=== PATIENT | female | born 1960 | race Caucasian/White ===

== ENCOUNTER 2016-06-25 12:47 | Emergency (ER) | payer BC, SELFPAY ==
[2016-06-25 12:32] LABS: WBC (NOT ORDERED) (RFLEX) 0 (0-5)
[2016-06-25 12:35] LABS: BASOPHILS 0.4 %; BASOPHILS ABSOLUTE 0.05 10/3/uL (0.0-0.16); EOSINOPHILS 0.7 %; EOSINOPHILS ABSOLUTE 0.09 10/3/uL (0.0-0.53); HEMATOCRIT 46.7 % (36.0-48.0); HEMOGLOBIN 15.7 g/dL (12.0-16.0); IMMATURE GRANULOCYTES 0.2 %; IMMATURE GRANULOCYTES ABSOLUTE 0.03 10/3/uL (0.0-0.11); LYMPHOCYTES 25.9 %; MANUAL DIFF NO %; MEAN CORPUS HGB CONC 33.6 g/dL (32.0-36.0); MEAN CORPUSCULAR HEMOGLOB 30.5 pg (26.0-34.0); MEAN CORPUSCULAR VOLUME 90.9 fL (80-100); MEAN PLATELET VOLUME 11.1 fL (9.2-13.0); MONOCYTES 4.9 %; MONOCYTES ABSOLUTE 0.62 10/3/uL (0.21-1.20); NEUTROPHILS 67.9 %; NEUTROPHILS ABSOLUTE 8.66 10/3/uL (2.02-8.40); PLATELET COUNT 276 10/3/uL (150-400); RBC DISTRIBUTION WIDTH 13.9 % (12.0-16.0); RED CELL COUNT 5.14 10/6/uL (4.0-5.6); WHITE BLOOD CELLS 12.8 10/3/uL (4.5-10.5)
[2016-06-25 12:36] LABS: ER CBC TAT 0 Hrs 05 Mins
[2016-06-25 12:41] LABS: ASCORBIC ACID (UR NOT ORDER) NEG (NEG); BILIRUBIN, URINE NEGATIVE (NEG); ER URINALYSIS TAT 0 Hrs 10 Mins; KETONE, URINE NEGATIVE (NEG); LEUKOCYTE ESTERASE(NOT OR NEG (NEG); NITRITE (URINE) POS (NEG)
[~2016-06-25 12:47] MED LIST: FLEX PO; NORCO1 TA1 PO; NORCO1 TA2 PO
[2016-06-25 12:54] LABS: A/G RATIO 1.2 (0.7-1.9); ALBUMIN 4.4 G/DL (3.5-5.0); ALKALINE PHOSPHATASE 121 U/L (45-117); BUN (BLOOD UREA NITROGEN) 11 MG/DL (6-23); CALCIUM, SERUM 9.4 MG/DL (8.5-10.4); CHLORIDE, SERUM 105 MMOL/L (96-112); CO2 (CARBON DIOXIDE) 26 MMOL/L (24-34); CREATININE 0.76 MG/DL (0.55-1.02); GFR AFRICAN AMERICAN 103 ML/MIN (>=60); GFR NON AFRICAN AMERICAN 89 ML/MIN (>=60); GLOBULIN 3.7 G/DL (2.5-4.1); GLUCOSE, SERUM 94 MG/DL (60-99); SGPT(ALT) 39 U/L (5-65); SODIUM, SERUM 141 MMOL/L (135-148); TOTAL BILIRUBIN 0.3 MG/DL (0-1.2); TOTAL PROTEIN 8.1 G/DL (6.0-8.5)
[2016-06-25 12:55] LABS: SGOT(AST) 21 U/L (5-40)
[2016-07-11] MEDS ORDERED: CLARIT10 PO (15:44)
[2016-09-10] MEDS ORDERED: ANTIBIOTIC (13:36)
== END 2016-06-25 15:00 | disposition home or self-care (01) ==
LOC: ER 12:47
PROVIDERS: Physician Assistant
DX: N23 Unspecified renal colic (principal); F17.200 Nicotine dependence, unspecified, uncomplicated; Z88.5 Allergy status to narcotic agent; Z79.899 Other long term (current) drug therapy
CPT/HCPCS: 74176; 80053; 81001; 83690; 85025; 96374; 99284; J1170; J2405

== ENCOUNTER 2016-07-22 11:50 | Day surgery (SDC) | payer BC, SELFPAY ==
[2016-07-15 11:06] LABS: HEMATOCRIT 44.6 % (36.0-48.0); HEMOGLOBIN 15.1 g/dL (12.0-16.0)
--- NOTE | ~2016-07-22 | OP ---
Record Of Operation [facility] [address] [place]. [address] NAME: BEBO CALDERA : 62 STATUS : [facility]#: [id number] AGE: 55 ADM/REG DATE : 07/22/16 MR#: [id number] REPORT SERV DATE: 07/22/16 DICTATED BY: TONY TURNER III DATE: 07/22/16 REPORT STATUS : Draft TRANSCRIBED BY: MODL DATE: 07/22/16 DATE OF PROCEDURE: 07/22/2016 PREOPERATIVE DIAGNOSIS: Possible ureteral calculi. POSTOPERATIVE DIAGNOSIS: No ureteral calculi noted. PROCEDURES: Cystoscopy, bilateral retrograde pyelograms, and right ureteroscopy. SURGEON: Tony Turner M.D. ANESTHESIA: General. SPECIMENS: None. DRAINS: None. INDICATION: Ms. Caldera is a 55-year-old white female with a history of nephrolithiasis. She recently had a CT scan secondary to right abdominal pain showing some very minute renal calculi bilaterally. There are also some calcifications in the area of the distal ureters, which might be phleboliths or possible stones. She does complain of right flank pain. Consent is obtained for cystoscopy, bilateral retrograde pyelograms, and possible stone manipulation. DESCRIPTION OF PROCEDURE: After consent was obtained, the patient was identified. She was taken to the OR and put to sleep. She was positioned in the low lithotomy position and prepped and draped in usual fashion. The 22-[place] cystoscope was made ready and inserted into the bladder. She was noted to have a grade 2 cystocele. There were no tumors, stones, or foreign bodies noted. A cone-tipped ureteral catheter was flushed with contrast and inserted into the left ureteral orifice. A retrograde study was obtained, which appeared normal. There were no filling defects and there was no dilation noted. The right ureteral orifice was somewhat patulous consistent with a prior dilation. Retrograde pyelogram was done on that side as well. No filling defects were noted. The ureter appeared to be normal size. Because of her complaint of flank pain, it was decided to perform flexible ureteroscopy without dilation. Therefore, a Glidewire was passed up the right ureter. It was over the wire, a flexible ureteroscope was advanced. When in position, the wire was removed. Flexible ureteroscopy was performed. There were no stones noted along the entire course of the right ureter. The bladder was then drained, the scope removed. The patient was awakened and taken to Recovery in stable condition. PH/MODL Tony Turner III, M.D. Record Of [address] [address] NAME: BEBO CALDERA : 62 STATUS : [facility] PAT#: [id number] AGE: 55 ADM/REG DATE : 07/22/16 MR#: [id number] REPORT SERV DATE: 07/22/16 DICTATED BY: TONY TURNER III DATE: 07/22/16 REPORT STATUS : Draft TRANSCRIBED BY: HAN DATE: 07/22/16 / [id number] CC: Tony Turner III, M.D.
[~2016-07-22 11:50] MED LIST changes: +CLARIT10 PO
[2016-09-10] MEDS ORDERED: ANTIBIOTIC (13:36)
== END 2016-07-22 21:28 | disposition home or self-care (01) ==
LOC: SDC 11:50
PROVIDERS: Urology
PROC: BT14ZZZ Fluoroscopy of Kidneys, Ureters and Bladder (ICD-10-PCS; 2016-07-22)
PROC: 0TJ98ZZ Inspection of Ureter, Via Natural or Artificial Opening Endoscopic (ICD-10-PCS; principal; 2016-07-22 13:45)
DX: R10.9 Unspecified abdominal pain (principal); Z87.442 Personal history of urinary calculi; M81.0 Age-related osteoporosis without current pathological fracture; M25.512 Pain in left shoulder; M25.511 Pain in right shoulder; M25.552 Pain in left hip; M25.551 Pain in right hip; K86.2 Cyst of pancreas; Z88.5 Allergy status to narcotic agent; Z79.899 Other long term (current) drug therapy; Z87.891 Personal history of nicotine dependence; Z90.710 Acquired absence of both cervix and uterus; Z90.49 Acquired absence of other specified parts of digestive tract; Z98.890 Other specified postprocedural states
CPT/HCPCS: 74176; 74420; 85014; 85018; 93005; A9270-GY; C1758; C1769; J1170; J2250; J2405; J3010

== ENCOUNTER 2016-09-16 10:42 | Day surgery (SDC) | payer BC, SELFPAY ==
[2016-09-11 17:14] LABS: HEMATOCRIT 44.8 % (36.0-48.0); HEMOGLOBIN 15.1 g/dL (12.0-16.0)
[2016-09-11 18:43] LABS: ASCORBIC ACID (UR NOT ORDER) NEG (NEG); BILIRUBIN, URINE NEGATIVE (NEG); KETONE, URINE NEGATIVE (NEG); LEUKOCYTE ESTERASE(NOT OR NEG (NEG); WBC (NOT ORDERED) (RFLEX) 1 (0-5)
--- NOTE | ~2016-09-16 | OP ---
Record Of Operation [facility] [address] [place]. [address] NAME: BEBO CALDERA : 62 STATUS : [facility]#: [id number] AGE: 56 ADM/REG DATE : 09/16/16 MR#: [id number] REPORT SERV DATE: 09/16/16 DICTATED BY: TONY TURNER III DATE: 09/16/16 REPORT STATUS : Draft TRANSCRIBED BY: MODL DATE: 09/16/16 DATE OF PROCEDURE: 09/16/2016 POSTOPERATIVE DIAGNOSIS: Right renal calcification. POSTOPERATIVE DIAGNOSIS: Right renal calcification. PROCEDURE: Extracorporeal shock wave lithotripsy. ANESTHESIA: General. SPECIMENS: None. DRAINS: None. BLOOD LOSS: None. INDICATION: Ms. Caldera is a 56-year-old white female with chronic right-sided pain. She does have a small calcification in the right kidney. She desires to undergo lithotripsy of this kidney that is nonobstructing. DESCRIPTION OF PROCEDURE: After consent was obtained, the patient was identified, she was taken to the lithotripsy suite and positioned on the treatment table. Attempts at MAC anesthesia were unsuccessful secondary to the patient's intolerance, therefore, she was switched to general. She ultimately received 2500 shocks to a power level of 4. She was then taken to recovery in stable condition. PH/HAN Tony Turner III, M.D. / [id number] CC: Tony Turner III, M.D. NO PCP
[~2016-09-16 10:42] MED LIST changes: +ANTIBIOTIC
== END 2016-09-16 15:42 | disposition home or self-care (01) ==
LOC: SDC 10:42
PROVIDERS: Urology
PROC: 0TF3XZZ Fragmentation in Right Kidney Pelvis, External Approach (ICD-10-PCS; principal; 2016-09-16 13:00)
DX: N28.89 Other specified disorders of kidney and ureter (principal); M81.0 Age-related osteoporosis without current pathological fracture; M25.512 Pain in left shoulder; M25.511 Pain in right shoulder; M25.552 Pain in left hip; M25.551 Pain in right hip; K86.2 Cyst of pancreas; Z88.5 Allergy status to narcotic agent; Z79.2 Long term (current) use of antibiotics; Z79.899 Other long term (current) drug therapy; Z87.891 Personal history of nicotine dependence; Z90.710 Acquired absence of both cervix and uterus; Z98.890 Other specified postprocedural states; Z87.442 Personal history of urinary calculi; Z90.49 Acquired absence of other specified parts of digestive tract
CPT/HCPCS: 50590; 74000; 81001; 85014; 85018; 93005; J2405; J3010